=== PATIENT | male | born 1970 | race Caucasian/White ===

== ENCOUNTER 2019-09-15 22:14 | Emergency (ER) | payer MEDICAID ==
[~2019-09-15] VITALS: Ht 167.6 cm; Wt 68.0 kg
[2019-09-15] MEDS ORDERED: DESMOPRESSIN ACETATE 4MCG/ML AMP IV ONE (23:15)
[2019-09-15] MEDS ORDERED: LIDOCAINE 1%/EPI 1:100,000 10 ML VIAL IJ ONE (23:15)
[2019-09-15] MEDS ORDERED: BACITRACIN ZINC OINT UDPKT TOP ONE (23:15)
[2019-09-16 00:07] LABS: HEMATOCRIT. 45.1 % (42.0-52.0); HEMOGLOBIN. 14.9 g/dL (14.0-18.0); MEAN CORPUSCULAR HEMOGLOBIN 29.9 pg (28.0-32.0); MEAN CORPUSCULAR VOLUME 90.5 fL (80.0-94.0); MEAN PLATELET VOLUME 9.5 fl (7.4-10.4); PLATELET 75 x1000/uL (130-400); RED BLOOD CELL COUNT 4.98 mill/uL (4.7-6.1); RED CELL DISTRIBUTION WIDTH 13.9 % (11.6-14.6)
[2019-09-16 00:13] LABS: PROTHROMBIN TIME 10.5 sec (9.6-11.0)
[2019-09-16 00:19] LABS: CHLORIDE 99 mEq/L (98-107)
[2019-09-16] MEDS ORDERED: DESMOPRESSIN ACETATE 20 MCG in SODIUM CHLORIDE 0.9% 50 ML IV SCH (01:00)
[2019-09-16 03:04] VITALS: BP 93/54
[2019-09-16 06:15] LABS: PLATELET ESTIMATE DECREASED
== END 2019-09-16 04:14 | disposition left against medical advice (07) ==
LOC: ER 22:14
DX: T82.838A Hemorrhage due to vascular prosthetic devices, implants and grafts, initial encounter (principal); I95.9 Hypotension, unspecified; I12.0 Hypertensive chronic kidney disease with stage 5 chronic kidney disease or end stage renal disease; N18.6 End stage renal disease; Z99.2 Dependence on renal dialysis; Z98.890 Other specified postprocedural states
CPT/HCPCS: 36415; 80053; 85025; 85610; 86850; 86900; 86901; 96365; 99283; J2597; J3490

== ENCOUNTER 2024-09-14 02:11 | Emergency (ER) | payer MEDICAID ==
[~2024-09-14] VITALS: Ht 165.1 cm; Wt 70.0 kg
[2024-09-14 02:32] VITALS: BP 120/66; TEMP 36.7; O2SAT 97
[2024-09-14 02:34] VITALS: PULSE 56; RESP 18; O2SAT 95
[2024-09-14] MEDS ORDERED: CEPH500C2 MT (06:38)
== END 2024-09-14 07:11 | disposition home or self-care (01) ==
LOC: ER 02:11
DX: L60.0 Ingrowing nail (principal); I12.0 Hypertensive chronic kidney disease with stage 5 chronic kidney disease or end stage renal disease; N18.6 End stage renal disease; Z99.2 Dependence on renal dialysis; Z79.899 Other long term (current) drug therapy
CPT/HCPCS: 11730; 99284; Z7610 ×2; 10060; 99283